=== PATIENT | female | born 1995 | race Caucasian/White ===

== ENCOUNTER 2017-10-28 19:48 | Emergency (ER) | payer OTHER ==
[2017-10-28] MEDS ORDERED: NS 1,000 ML IV ONE (19:59)
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
[2017-10-28 20:12] LABS: PLATELET COUNT 234 10^3/uL (150-400)
[2017-10-28 22:07] VITALS: BP 113/66
== END 2017-10-28 22:07 | disposition home or self-care (01) ==
DX: S42.252A Displaced fracture of greater tuberosity of left humerus, initial encounter for closed fracture (principal); S00.83XA Contusion of other part of head, initial encounter; E86.9 Volume depletion, unspecified; V89.2XXA Person injured in unspecified motor-vehicle accident, traffic, initial encounter
CPT/HCPCS: A4565; G0480

== ENCOUNTER 2018-04-14 18:17 | Emergency (ER) | payer MEDICAID ==
[2018-04-14] MEDS ORDERED: NS 1,000 ML IV ONE ×2 (19:06)
[2018-04-14] MEDS ORDERED: PROMETHAZINE HCL 25 MG/ML INJ IVP ONE (19:06)
--- NOTE | 2018-04-14 19:06 | EDPHY ---
H & P Stated Complaint: R flank,RLQ pain Time Seen by Provider: 04/14/18 19:01 HPI/ROS: HPI: This is a 22-year-old female who presents with Chief Complaint: R flank, RLQ pain Location: Right lower quadrant Quality: Pain Duration: Since yesterday; approximately 24 hr Signs and Symptoms: + fever, + nausea, + vomiting, no hematemesis, no blood in stool, no abdominal bloating, no diarrhea, no back pain, no urinary symptoms, no testicular/groin pain, no indigestion, no chest pain, no shortness of breath Timing: Severity: Context: Patient is G1, approximately 23 weeks, presents with sudden onset of right lower quadrant pain that has been waxing waning over the last 24 hr. She reports fever at home today. She reports that the pain started while she was lying down and resting. She has complained of nausea and vomiting her entire . She was given nausea prescription per her significant other at bedside a several days ago. They have not filled this prescription. Her care is at the [facility]. Her next appointment there is on April 20. Patient denies any vaginal bleeding, vaginal discharge. She denies any urinary symptoms. Modifying Factors: None Comment: ROS: A comprehensive 10 system review of systems is otherwise negative aside from elements mentioned in the history of present illness. MEDICAL/SURGICAL/SOCIAL HISTORY: Medical history: Migraine Surgical history: Denies Social history: Never smoked. Family history noncontributory. CONSTITUTIONAL: Well-appearing, young adult white female, awake and alert, no obvious distress HEENT: Atraumatic and normocephalic, PERRL, EOMI. Nares patent; no rhinorrhea; no nasal mucosal edema. Tympanic membranes clear. Oropharynx clear, no exudate and moist pink mucosa. Airway patent. No lymphadenopathy. No meningismus. Cardiovascular: Normal S1/S2, tachycardia, regular rhythm, without murmur rub or gallop. PULMONARY/CHEST: Symmetrical and nontender. Clear to auscultation bilaterally. Good air movement. No accessory muscle usage. ABDOMEN: Soft, gravid, mild right lower quadrant tenderness;, no rebound, no guarding, no peritoneal signs, no masses or organomegaly. No CVAT. EXTREMITIES: 2/2 pulses, strength 5/5, no deformities, no clubbing, no cyanosis or edema. NEUROLOGICAL: no focal neuro deficits. GCS 15. SKIN: Warm and dry, no erythema. no rash. Good capillary refill. Source: Patient Exam Limitations: No limitations - Personal History LMP (Females 10-55): Current Tetanus/Diphtheria Vaccine: Yes Current Tetanus Diphtheria and Acellular Pertussis (TDAP): Yes - Medical/Surgical History Hx Asthma: No Hx Chronic Respiratory Disease: No Hx Diabetes: No Hx Cardiac Disease: No Hx Renal Disease: No Hx Cirrhosis: No Hx Alcoholism: No Hx HIV/AIDS: No Hx Splenectomy or Spleen Trauma: No Other PMH: MIGRAINE - Social History Smoking Status: Never smoked Constitutional: Initial Vital Signs Temperature (C) 38.3 C 04/14/18 18:34 Heart Rate 133 H 04/14/18 18:34 Respiratory Rate 16 04/14/18 18:34 Blood Pressure 106/68 04/14/18 18:34 O2 Sat (%) 94 04/14/18 18:34 O2 Delivery Mode Room Air Allergies/Adverse Reactions: No Known Allergies Allergy (Unverified 04/14/18 18:34) Home Medications: Medication Instructions Recorded Migraine 10/28/17 Nitrofurantoin Monohyd/M-Cryst 100 mg PO BID 7 Days capsule 04/14/18 [Macrobid 100 mg Capsule] 04/14/18 Promethazine HCl [Phenergan 12.5mg 12.5 mg PO Q6 PRN #12 tablet 04/14/18 tab] Medical Decision Making - Diagnostics Imaging Results: Imaging Impressions Abdomen Ultrasound 04/14/18 19:07 Impression: 1. Nonvisualization of the appendix. Results called to Bella Anderson PA-C, at the time of the interpretation. ED Course/Re-evaluation: Vital signs reviewed and show tachycardia upon arrival. Placed on privacy manager heart tones 140 to 150s. IV access and laboratory studies and urinalysis ordered. Right lower quadrant and OB ultrasound ordered Given 2 L normal saline and IV promethazine 12.5 mg 191: Urinalysis shows 2+ ketones, 3+ LE, WBC 51-182, 2+ bacteria; sent for urine culture; given 1 g Rocephin 1940: Labs reviewed. WBC 12 K with left shift, potassium 3.4, creatinine 0.7, H&H 11.5/32.7 Per Radiology and right lower quadrant ultrasound unable to visualize appendix due to bowel gas but no secondary findings. Pelvic ultrasound shows no right ovarian cyst/ectopic /ovarian torsion. Intrauterine consistent with 23 weeks with strong heart rate; 153 beats per minute. No previa. 2004: ED decision to consult OBGYN for pyelonephritis and 23 week [address] with Dr[address] Ellison who reviewed the chart and feels that patient is not appropriate for admission and can be treated outpatient with Macrobid 7 day course. She is to call the [facility] on Wednesday and push hydration. Vital signs improved at discharge. Tachycardia resolved. Drinking fluids without difficulty. 2014: Repeat abdominal exam is soft and nontender. Patient and mother feel comfortable being discharged home with close follow-up outpatient. [place] and that if there are any worsening of symptoms they are return to the emergency room. This patient was seen under the supervision of my secondary supervising physician. I evaluated care for this patient independently. Discussed this patient with Dr. Kebede. Differential Diagnosis: Abdominal pain in a female including but not limited to ovarian cyst, pelvic inflammatory disease, ovarian torsion, urinary tract infection, and appendicitis. - Data Points Laboratory Results: Laboratory Results 04/14/18 19:05 04/14/18 19:05 04/14/18 04/14/18 04/14/18 19:05 19:05 19:05 WBC RBC Hgb Hct MCV MCH MCHC RDW Plt Count MPV Neut % (Auto) Lymph % (Auto) [place] % (Auto) Eos % (Auto) Baso % (Auto) Nucleat RBC Rel Count Absolute Neuts (auto) Absolute Lymphs (auto) Absolute Monos (auto) Absolute Eos (auto) Absolute Basos (auto) Absolute Nucleated RBC Immature Gran % Immature Gran # Sodium 131 mEq/L L mEq/L (135-145) Potassium 3.4 mEq/L mEq/L (3.3-5.0) Chloride 104 mEq/L mEq/L (97-110) Carbon Dioxide 19 mEq/l L mEq/l (22-31) Anion Gap 8 mEq/L mEq/L (6-14) BUN 7 mg/dL mg/dL (7-23) Creatinine 0.7 mg/dL mg/dL (0.6-1.0) Estimated GFR > 60 Glucose 100 mg/dL mg/dL (70-100) Calcium 8.8 mg/dL mg/dL (8.5-10.4) Total Bilirubin 2.4 mg/dL H mg/dL (0.1-1.4) Conjugated Bilirubin 0.2 mg/dL mg/dL (0.0-0.5) Unconjugated Bilirubin 2.2 mg/dL H mg/dL (0.0-1.1) AST 12 IU/L L IU/L (14-46) ALT 19 IU/L IU/L (9-52) Alkaline Phosphatase 94 IU/L IU/L (38-126) Total Protein 6.9 g/dL g/dL (6.3-8.2) Albumin 3.5 g/dL g/dL (3.5-5.0) Beta HCG, Qual POSITIVE Beta HCG, Quant 31988.00 mIU/mL H mIU/mL (0.00-4.83) Urine Color Urine Appearance Urine pH Ur Specific [place] Urine Protein Urine Ketones Urine Blood Urine Nitrate Urine Bilirubin Urine Urobilinogen Ur Leukocyte Esterase Urine RBC Urine WBC Ur Epithelial Cells Urine Bacteria Urine Mucus Urine Glucose Patient ABO/Rh AB POSITIVE 04/14/18 04/14/18 19:05 18:35 WBC 12.92 10^3/uL H 10^3/uL (3.80-9.50) RBC 3.68 10^6/uL L 10^6/uL (4.18-5.33) Hgb 11.5 g/dL L g/dL (12.6-16.3) Hct 32.7 % L % (38.0-47.0) MCV 88.9 fL fL (81.5-99.8) MCH 31.3 pg pg (27.9-34.1) MCHC 35.2 g/dL g/dL (32.4-36.7) RDW 12.5 % % (11.5-15.2) Plt Count 157 10^3/uL 10^3/uL (150-400) MPV 8.7 fL fL (8.7-11.7) Neut % (Auto) 85.0 % H % (39.3-74.2) Lymph % (Auto) 4.9 % L % (15.0-45.0) Kemper % (Auto) 9.6 % % (4.5-13.0) Eos % (Auto) 0.0 % L % (0.6-7.6) Baso % (Auto) 0.1 % L % (0.3-1.7) Nucleat RBC Rel Count 0.0 % % (0.0-0.2) Absolute Neuts (auto) 10.99 10^3/uL H 10^3/uL (1.70-6.50) Absolute Lymphs (auto) 0.63 10^3/uL L 10^3/uL (1.00-3.00) Absolute Monos (auto) 1.24 10^3/uL H 10^3/uL (0.30-0.80) Absolute Eos (auto) 0.00 10^3/uL L 10^3/uL (0.03-0.40) Absolute Basos (auto) 0.01 10^3/uL L 10^3/uL (0.02-0.10) Absolute Nucleated RBC 0.00 10^3/uL 10^3/uL (0-0.01) Immature Gran % 0.4 % % (0.0-1.1) Immature Gran # 0.05 10^3/uL 10^3/uL (0.00-0.10) Sodium Potassium Chloride Carbon Dioxide Anion Gap BUN Creatinine Estimated GFR Glucose Calcium Total Bilirubin Conjugated Bilirubin Unconjugated Bilirubin AST ALT Alkaline Phosphatase Total Protein Albumin Beta HCG, Qual Beta HCG, Quant Urine Color DAREN Urine Appearance MODERATELY TURBID Urine pH 5.0 (5.0-7.5) Ur Specific [place] 1.018 (1.002-1.030) Urine Protein 2+ H (NEGATIVE) Urine Ketones 2+ H (NEGATIVE) Urine Blood 1+ H (NEGATIVE) Urine Nitrate POSITIVE H (NEGATIVE) Urine Bilirubin NEGATIVE (NEGATIVE) Urine Urobilinogen 2.0 EU H EU (0.2-1.0) Ur Leukocyte Esterase 3+ H (NEGATIVE) Urine RBC 15-25 /hpf H /hpf (0-3) Urine WBC 50-182 /hpf H /hpf (0-3) Ur Epithelial Cells TRACE /lpf /lpf (NONE-1+) Urine Bacteria 2+ /hpf H /hpf (NONE SEEN) Urine Mucus 2+ /lpf H /lpf (NONE-1+) Urine Glucose NEGATIVE (NEGATIVE) Patient ABO/Rh Medications Given: Discontinued Medications Sodium Chloride (Ns) 1,000 mls @ 0 mls/hr IV EDNOW ONE; Wide Open PRN Reason: Protocol Stop: 04/14/18 19:07 Last Admin: 04/14/18 19:09 Dose: 1,000 mls Sodium Chloride (Ns) 1,000 mls @ 0 mls/hr IV EDNOW ONE; Wide Open PRN Reason: Protocol Stop: 04/14/18 19:07 Last Admin: 04/14/18 19:10 Dose: 1,000 mls Ceftriaxone Sodium/Dextrose (Rocephin 1 Gm (Premix)) 50 mls @ 100 mls/hr IV EDNOW ONE PRN Reason: Protocol Stop: 04/14/18 19:43 Last Admin: 04/14/18 19:18 Dose: 50 mls Promethazine HCl (Phenergan) 12.5 mg IVP EDNOW ONE Stop: 04/14/18 19:07 Last Admin: 04/14/18 19:10 Dose: 12.5 mg Departure - Departure Disposition: Home, Routine, Self-Care Clinical Impression: Pyelonephritis affecting Qualifiers: Trimester: second trimester Qualified Code(s): O23.02 - Infections of kidney in , second trimester Condition: Good Instructions: Urinary Tract Infection in (ED) Additional Instructions: Consume a minimum of 8-10 glasses of water or electrolyte fluid replacement drinks that include Gatorade, Powerade, Pedialyte. Eat a bland diet for the next 48 hours and then slowly advance as tolerated. Take Phenergan 1 tab every 6 hours as needed for nausea, vomiting. Take Macrobid twice a day x7 days. Follow up with [facility] on Wednesday. Return to the Emergency Room if symptoms do not resolve in the next 48-72 hours , you spike a fever > 102 F, or experience intractable abdominal pain/nausea/ vomiting. Referrals: [facility],. [Clinic] - As per Instructions Prescriptions: Nitrofurantoin Monohyd/M-Cryst [Macrobid 100 mg Capsule] 100 mg PO BID 7 Days capsule Promethazine HCl [Phenergan 12.5mg tab] 12.5 mg PO Q6 PRN #12 tablet PRN Reason: Nausea/Vomiting, Use 1st
[2018-04-14] MEDS ORDERED: PROMETHAZINE HCL 25 MG/ML INJ ONE (19:08)
[2018-04-14 19:21] LABS: PLATELET COUNT 157 10^3/uL (150-400)
[2018-04-14 20:45] VITALS: BP 106/56
== END 2018-04-14 20:44 | disposition home or self-care (01) ==
DX: O23.02 Infections of kidney in pregnancy, second trimester (principal); O99.282 Endocrine, nutritional and metabolic diseases complicating pregnancy, second trimester; E86.9 Volume depletion, unspecified; Z3A.23 23 weeks gestation of pregnancy
CPT/HCPCS: 96365; J0696; J2550